=== PATIENT | female | born 1950 | race Caucasian/White ===

== ENCOUNTER → 2016-05-10 | Outpatient (CLI) | payer BC ==
[~2016-05-10] MED LIST: HYDR25TA5 PO; LISI40TA PO
--- NOTE | 2016-05-10 12:40 | MAMMOGRAPHY REPORT ---
BILATERAL DIGITAL SCREENING MAMMOGRAM WITH CAD: 05/10/2016 TECHNIQUE: Current study was also evaluated with a Computer Aided Detection (CAD) system. Bilatera l CC and MLO views were obtained. COMPARISON: Comparison is made to exams dated: 05/07/2015 mammogram, 03/14/2014 mammogram, 3 mammogram, 10/07/2010 mammogram, and 10/21/2009 mammogram - [facility]. BREAST COMPOSITION: There are scattered areas of fibroglandular density in both breasts. FINDINGS: No suspicious masses, calcifications, or areas of architectural distortion are noted in e ither breast. There has been no significant interval change compared to prior exams. Bilateral talib gn-appearing calcifications are not significantly changed. A biopsy marker clip is again noted in t he right central breast. IMPRESSION: ACR BI-RADS CATEGORY 2: BENIGN There is no mammographic evidence of malignancy. A 1 year screening mammogram is recommended. The p atient will receive written notification of the results. Approximately 10% of breast cancers are not detected with mammography. A negative mammographic repor t should not delay biopsy if a clinically suggestive mass is present. Anika Verduzco M.D. ah/:05/10/2016 11:43:20 Microeconomics Professor: Monserrat ENRIQUEZ(R)(M), [facility] letter sent: Normal 1/2 BI-RADS Code: ACR BI-RADS Category 2: Benign
== END | disposition home or self-care (01) ==
LOC: C.MAMM 09:53
PROVIDERS: ATTEND Nurse Practitioner
DX: Z12.31 Encounter for screening mammogram for malignant neoplasm of breast (principal)

== ENCOUNTER → 2016-06-05 | Outpatient (CLI) | payer BC ==
[2016-06-05 13:34] LABS: ESTIMATED AVERAGE GLUCOSE 128 mg/dl; HA1C FLAG Normal (Normal)
[2016-06-05 13:39] LABS: BLOOD UREA NITROGEN 17 mg/dl (7-18); CALCIUM 8.8 mg/dl (8.5-10.1); CARBON DIOXIDE 27 mmol/L (21-32); CHLORIDE 107 mmol/L (98-107); CREATININE 0.82 mg/dl (0.60-1.20); GLUCOSE 107 mg/dl (70-99); POTASSIUM 4.1 mmol/L (3.5-5.1); SODIUM 143 mmol/L (136-145)
[2016-06-05 13:42] LABS: CHOLESTEROL 200 mg/dl (0-200); HDL CHOLESTEROL 50 mg/dl; LDL CHOLESTEROL CALCULATED 130 mg/dl; TRIGLYCERIDES 101 mg/dl (0-150); VERY LOW DENSITY LIPOPROT CALC 20 mg/dl
== END ==
LOC: C.LABPVFM 08:07
PROVIDERS: ATTEND Nurse Practitioner
DX: I10 Essential (primary) hypertension (principal); R73.01 Impaired fasting glucose; E78.5 Hyperlipidemia, unspecified

== ENCOUNTER → 2016-12-31 | Outpatient (CLI) | payer BC ==
[2016-12-31 12:56] LABS: BLOOD UREA NITROGEN 18 mg/dl (7-18); BUN/CREATININE RATIO 24.2 (10-20); CALCIUM 9.1 mg/dl (8.5-10.1); CARBON DIOXIDE 29 mmol/L (21-32); CHLORIDE 102 mmol/L (98-107); CREATININE 0.76 mg/dl (0.60-1.20); GLUCOSE 123 mg/dl (70-99); POTASSIUM 3.8 mmol/L (3.5-5.1); SODIUM 137 mmol/L (136-145)
[2016-12-31 12:59] LABS: CHOLESTEROL 189 mg/dl (0-200); CHOLESTEROL/HDL RATIO 3.4; HDL CHOLESTEROL 56 mg/dl; LDL CHOLESTEROL CALCULATED 113 mg/dl; TRIGLYCERIDES 98 mg/dl (0-150); VERY LOW DENSITY LIPOPROT CALC 20 mg/dl
== END | disposition home or self-care (01) ==
LOC: C.LABPVFM 07:51
PROVIDERS: ATTEND Nurse Practitioner
DX: E78.5 Hyperlipidemia, unspecified (principal); I10 Essential (primary) hypertension; R73.01 Impaired fasting glucose

== ENCOUNTER → 2017-05-11 | Outpatient (CLI) | payer BC ==
--- NOTE | 2017-05-11 15:22 | MAMMOGRAPHY REPORT ---
BILATERAL DIGITAL SCREENING MAMMOGRAM TOMOSYNTHESIS WITH CAD: 05/11/2017 CLINICAL HISTORY: Routine screening. Patient has no complaints. TECHNIQUE: Breast tomosynthesis in addition to standard 2D mammography was performed. Current study was also evaluated with a Computer Aided Detection (CAD) system. COMPARISON: Comparison is made to exams dated: 05/10/2016 mammogram, 05/07/2015 mammogram, 03/14/2014 mammogram, 03/13/2013 mammogram, 10/07/2010 mammogram, and 10/21/2009 mammogram - [facility]. BREAST COMPOSITION: There are scattered areas of fibroglandular density in both breasts. FINDINGS: A linear scar marker overlies the upper outer quadrant of the left breast. There is expect ed underlying architectural distortion denoting a prior surgical excision. There is a stable audrey-sha ped biopsy marker clip in the 6:00 right breast. There are scattered stable benign-appearing rodlike and coarse calcifications bilaterally. No suspicious spiculated or irregular mass, architectural di stortion or cluster of new, suspicious microcalcifications is seen. IMPRESSION: ACR BI-RADS CATEGORY 1: NEGATIVE There is no mammographic evidence of malignancy. A 1 year screening mammogram is recommended. The pa tient will receive written notification of the results. Approximately 10% of breast cancers are not detected with mammography. A negative mammographic report should not delay biopsy if a clinically suggestive mass is present. Kyara Andujar M.D. ay/:05/11/2017 09:37:50 Cloth Washer: Kesha WELSH)(Kenna), [facility] letter sent: Normal 1/2 BI-RADS Code: ACR BI-RADS Category 1: Negative
== END | disposition home or self-care (01) ==
LOC: C.MAMM 09:01
PROVIDERS: ATTEND Nurse Practitioner
DX: Z12.31 Encounter for screening mammogram for malignant neoplasm of breast (principal)

== ENCOUNTER → 2017-07-15 | Outpatient (CLI) | payer BC ==
[2017-07-15 13:40] LABS: HEMOGLOBIN A1C 6.2 % (4.5-5.6)
[2017-07-15 14:26] LABS: BLOOD UREA NITROGEN 19 mg/dl (7-18); CALCIUM 9.1 mg/dl (8.5-10.1); CARBON DIOXIDE 27 mmol/L (21-32); CREATININE 0.81 mg/dl (0.60-1.20); GLUCOSE 109 mg/dl (70-99)
[2017-07-15 14:43] LABS: CHOLESTEROL 179 mg/dl (0-200); LDL CHOLESTEROL CALCULATED 107 mg/dl; POTASSIUM 3.8 mmol/L (3.5-5.1); SODIUM 139 mmol/L (136-145)
== END | disposition home or self-care (01) ==
LOC: C.LABPVFM 09:18
PROVIDERS: ATTEND Nurse Practitioner
DX: I10 Essential (primary) hypertension (principal); R73.01 Impaired fasting glucose

== ENCOUNTER 2018-06-15 17:10 | Inpatient (IN) ==
[2018-06-15] MEDS ORDERED: SODIUM CHLORIDE 0.9% 1000ML 1,000 ML IV SCH (19:15)
[2018-06-15] MEDS: ONDANSETRON INJ 2 MG/ML 2 ML VIAL IV STA ×2 (19:28→19:51)
[2018-06-15] MEDS ORDERED: ACETAMINOPHEN 1,000 MG/100 ML VIAL IV STA (19:35)
[2018-06-15] MEDS ORDERED: SODIUM CHLORIDE 0.9% 1000ML 1,000 ML IV ONE (19:35)
[2018-06-15] MEDS ORDERED: MoRPHine SULFATE 10 MG/ML CARP/VIAL IV STA (19:35)
[2018-06-15 19:49] LABS: Appearance Urine Clear (Clear); Bacteria Urine Automated Negative (Negative); Bilirubin Urine Negative (Negative); Blood Urine Negative (Negative); Color Urine Dark Yellow; Epithelial Cell Urine Auto >30 /lpf (0-5); Glucose Urine UA Negative (Negative); Ketones Urine 2+ (Negative); Leukocyte Esterase Urine Negative (Negative); Nitrite Urine Positive (Negative); Protein Urine Negative (Negative); RBC Urine Automated 0-4 /hpf (0-4); Specific Gravity Urine 1.016 (1.000-1.030); Urobilinogen Urine Negative (Negative)
[2018-06-15 20:14] LABS: Basophils # (auto) 0.01 K/uL (0-0.2); Basophils % (auto) 0.1 %; Eosinophils # (auto) 0.01 K/uL (0-0.5); Eosinophils % (auto) 0.1 %; Hemoglobin 11.2 g/dL (12.0-16.0); Immature Granulocytes # (auto) 0.03 K/uL (0.00-0.02); Immature Granulocytes % (auto) 0.2 %; Lymphocytes % (auto) 15.2 %; Mean Corpuscular Hgb Conc 33.9 g/dL (32-36); Mean Corpuscular Volume 96.2 fL (80-100); Monocytes # (auto) 0.91 K/uL (0.11-0.59); Monocytes % (auto) 7.3 %; Neutrophils # (auto) 9.66 K/uL (1.4-6.5); Neutrophils % (auto) 77.1 %; Platelet Count 202 K/uL (130-400); RDW Coefficient of Variation 12.9 % (11.5-14.5); RDW Standard Deviation 44.8 fL (36.4-46.3); Red Blood Count 3.43 M/uL (4.2-5.4); White Blood Count 12.52 K/uL (4.8-10.8)
[2018-06-15 20:30] LABS: Albumin Level 2.8 gm/dl (3.4-5.0); Calcium 8.2 mg/dl (8.5-10.1); Creatinine Clr Calc Pharmacy 89.9 ml/min; Est GFR (African American) 103.2; Potassium 3.4 mmol/L (3.5-5.1)
[2018-06-15 20:33] LABS: Albumin Globulin Ratio 0.7 (0.9-2); Globulin 3.8 gm/dl (2.5-4.0); Total Protein 6.6 gm/dl (6.4-8.2)
[2018-06-15] MEDS ORDERED: IOVERSOL 100ml IV PRN (21:17)
--- NOTE | 2018-06-15 21:45 | CT Scan Report ---
CT OF THE ABDOMEN AND PELVIS WITH CONTRAST CLINICAL HISTORY: Abdominal Pain, h/o Diverticulitis COMPARISON STUDY: CT of the abdomen and pelvis October 06, 2013. TECHNIQUE: Following IV administration of 96 mL of Optiray-320, axial images of the abdomen and pelvi s were obtained from the lung bases to the proximal femurs. Images were reviewed in the axial, sagitt al, and coronal planes. IV contrast was administered without complication. Automated exposure contro l was utilized for the study. A dose lowering technique was utilized adhering to the principles of A DURAN. CT DOSE: 1475.16 mGy.cm FINDINGS: Lung bases are clear. The heart is mildly enlarged. There is fatty infiltration of the live r. Biliary ductal dilatation was shown on prior exam and likely related to previous cholecystectomy. There is a subcentimeter suspected right renal cyst. The spleen, adrenal glands and pancreas are unre markable. Major vasculature is patent. There is no evidence for a bowel obstruction. There is no free air. There is colonic diverticulosis. Note is made of moderate infiltration centered on the anterior aspect of the proximal sigmoid colon. There is no free air or abscess. This is adjacent to the dome of the bladder. There is infiltration adjacent to the bladder. There is no gas within the bladder. No suspicious osseous lesions are noted. Infiltration extends into the mesentery. IMPRESSION: Acute sigmoid diverticulitis. Moderate inflammation centered on the proximal sigmoid colon which exte nds into the mesentery. No free air or abscess. Infiltration adjacent to the dome of the bladder with mild infiltration adjacent to the bladder. No gas within the bladder however the findings could be c orrelated with urinalysis to exclude the possibility of a colovesicular fistula. Electronically signed by: Tay Ontiveros M.D. 06/15/2018 9:44 PM
--- NOTE | 2018-06-15 22:05 | Emergency Department Note ---
Entered by Pricilla Flores acting as a scribe for History of Present Illness General Chief complaint: GI Assessment Stated complaint: FEVER, DIVERTICULITIS Time Seen by Provider: 06/15/18 18:30 Source: patient Mode of arrival: ambulatory Limitations: no limitations History of Present Illness Provider complaint: abdominal pain Onset (ago): day(s) 4 Location: abdomen and right Pain Consistency: + other (persistent) Maximum Pain Intensity: 10 Current Pain Intensity: 10 Quality: + other (abdominal pain) Associated symptoms: + fever/chills and + other (diarrhea, constipation); no nausea/vomiting Treatments prior to arrival: other (Tylenol) The patient is a 68 year old female with a past medical history of diverticulitis and hypertension who presents to the Emergency Room with complai nts of a persistent abdominal pain that began 4 days ago. The patient reports that the pain began in her right lower quadrant but is now generalized throughout her abdomen. She states that she did have episodes of diarrhea on Tuesday and Tuesday but was constipated yesterday. She notes that she was e valuated by her PCP yesterday and prescribed cipro and told to present to the ER if she had a fever. She reports that earlier this morning she took her temperature and was 101 F and 103 F when she reevaluated later in the day. She states that she has been taking Tylenol for the fever and that her abdominal pain continues to be a 10/10. Home Medications Home Medications Medication Instructions Recorded Confirmed Type hydrochlorothiazide 25 mg PO QAM 06/15/18 06/15/18 History lisinopril 40 mg PO DAILY 06/15/18 06/15/18 History Allergies Allergy/AdvReac Type Severity Reaction Status Date / Time amoxicillin Allergy Intermediate Swelling Unverified 06/15/18 19:46 of Lip/Tongue/Throat clavulanic acid Allergy Intermediate Swelling Unverified 06/15/18 19:46 of Lip/Tongue/Throat Past Med/Surg History Medical History Hypertension (Chronic) Diverticulitis (Acute) Surgical History H/O hysterectomy with oophorectomy History of appendectomy History of tonsillectomy Hx of cholecystectomy Social History Preferred Language: Austrian Communication Ability: Effective Reimbursement Representative Required: No Beliefs That Will Affect Care: None Current Living Situation: Spouse Other Information That Helps Us Care for You: No Feels Safe at Home: Yes Safety Concerns: Feels Safe At This Time Smoking Status: Never smoker Hx Alcohol Use: No Hx Substance Use: No Review of Systems See HPI for pertinent positives & negatives. and A total of 10 systems reviewed and were otherwise negative Physical Exam Vital Signs Vital Signs - 24 hr 06/15/18 17:34 06/15/18 19:10 06/15/18 19:14 Temperature 38 C H Temperature Source Oral Sepsis Recent Fever Within 48 Hours No Sepsis New/Unexplained Change in Mental Status No Sepsis Action Taken by Nursing No Action Required Pulse Rate 91 H 92 H Pulse Rate [Left Finger] 81 Pulse Rhythm Regular Pulse Rhythm [Left Finger] Regular Pulse Strength [Left Finger] Normal Respiratory Rate 18 20 20 Respiratory Effort / Characteristics Non-Labored Spontaneous Non-Labored Spontaneous Respiratory Depth Normal Normal Respiratory Pattern Regular Regular Blood Pressure 161/85 H Blood Pressure [Right Arm] 164/87 H Blood Pressure Mean 110 Blood Pressure Mean [Right Arm] 112 Blood Pressure Position Sitting Blood Pressure Position [Right Arm] Sitting Pulse Oximetry 94 94 94 Oxygen Delivery Method Room Air Room Air Room Air 06/15/18 21:00 06/15/18 22:59 06/16/18 00:30 Temperature 36.7 C Temperature Source Oral Sepsis Recent Fever Within 48 Hours Sepsis New/Unexplained Change in Mental Status Sepsis Action Taken by Nursing Pulse Rate Pulse Rate [Left Finger] 73 74 73 Pulse Rhythm Pulse Rhythm [Left Finger] Regular Pulse Strength [Left Finger] Normal Respiratory Rate 20 18 16 Respiratory Effort / Characteristics Non-Labored Spontaneous Non-Labored Respiratory Depth Normal Normal Respiratory Pattern Regular Regular Blood Pressure Blood Pressure [Right Arm] 149/75 H 137/83 142/86 H Blood Pressure Mean Blood Pressure Mean [Right Arm] 99 101 104 Blood Pressure Position Blood Pressure Position [Right Arm] Sitting Sitting Pulse Oximetry 95 95 95 Oxygen Delivery Method Room Air Room Air Room Air GENERAL: Awake, alert, uncomfortable-appearing, in no distress HENT: Normocephalic, atraumatic. Oropharynx with dry mucous membranes and otherwise unremarkable. EYES: Normal conjunctiva. Sclera non-icteric. NECK: Supple. No nuchal rigidity. FROM. No JVD. RESPIRATORY: Clear to auscultation. CARDIAC: Regular rate, normal rhythm. Extremities warm and well perfused. Pulses equal. ABDOMEN: Soft, non-distended. Mild RLQ tenderness to palpation. No rebound or guarding. No masses. RECTAL: Deferred. MUSCULOSKELETAL: Chest examination reveals no tenderness. The back is symmetrical on inspection without obvious abnormality. There is no CVA tenderness to palpation. No joint edema. LOWER EXTREMITIES: Calves are equal size bilaterally and non-tender. No edema. No discoloration. NEURO: Normal sensorium. No sensory or motor deficits noted. SKIN: No rash or jaundice noted. Course 2022: Past medical records reviewed. The patient was evaluated in room C8, and a complete history and physical examination were performed. 2199: I reviewed the patient's case with Dr. Singh - [facility] Hospitalist. He will evaluate the patient for further management. Administered Medications Ciprofloxacin (Cipro) 400 mg in 200 mls @ 100 mls/hr IV Q12H ALEX Stop: 06/25/18 21:59 Last Infusion: 06/16/18 00:29 Dose: 0 mls/hr Documented by: [id number] Admin: 06/15/18 22:29 Dose: 100 mls/hr Documented by: [id number] Metronidazole (Flagyl) 500 mg in 100 mls @ 100 mls/hr IV Q8H ALEX Stop: 06/25/18 21:59 Last Infusion: 06/15/18 23:31 Dose: 0 mls/hr Documented by: [id number] Admin: 06/15/18 22:29 Dose: 100 mls/hr Documented by: [id number] Sodium Chloride (Nss 1000ml) 1,000 mls @ 100 mls/hr IV .Q10H ALEX Stop: 07/16/18 00:27 Last Admin: 06/16/18 00:52 Dose: 100 mls/hr Documented by: [id number] Discontinued Medications Sodium Chloride (Nss 1000ml) 1,000 mls @ 999 mls/hr IV .Q1H1M ALEX Stop: 06/15/18 20:15 Last Infusion: 06/15/18 21:32 Dose: 0 mls/hr Documented by: [id number] Admin: 06/15/18 19:28 Dose: 999 mls/hr Documented by: [id number] Acetaminophen (Ofirmev) 1,000 mg in 100 mls @ 400 mls/hr IV NOW STA Stop: 06/15/18 19:49 Last Infusion: 06/15/18 20:10 Dose: 0 mls/hr Documented by: [id number] Admin: 06/15/18 19:50 Dose: 400 mls/hr Documented by: [id number] Sodium Chloride (Nss 1000ml) 1,000 mls @ 999 mls/hr IV .Q1H1M ONE Stop: 06/15/18 20:35 Last Admin: 06/15/18 19:50 Dose: Not Given Documented by: [id number] Ioversol (Optiray 320 100ml) 96 ml IV ONCE PRN PRN Reason: Interaction Checking Stop: 06/19/18 21:16 Last Admin: 06/15/18 21:18 Dose: 96 ml Documented by: [id number] Morphine Sulfate (Morphine Sulfate) 8 mg IV NOW STA Stop: 06/15/18 19:36 Last Admin: 06/15/18 19:50 Dose: 8 mg Documented by: [id number] Ondansetron HCl (Zofran) 4 mg IV NOW STA Stop: 06/15/18 19:15 Last Admin: 06/15/18 19:51 Dose: 4 mg Documented by: [id number] Medical Decision Making Differential Diagnosis Differential diagnosis includes: gastritis, peptic ulcer disease, GERD, gallbladder disease, pancreatitis, small bowel obstruction, acute coronary syndrome, pericarditis, ischemic bowel, irritable bowel disease, irritable bowel syndrome, appendicitis, diverticulitis, malignancy, hernia, UTI, torsion, perforation, trauma, and kidney stones. Medical Records Attestation: I reviewed the patient's medical records. Home Medications Current Medication List: was personally reviewed by me Laboratory Data Attestation: I reviewed the patient's lab results. Result diagrams: 06/15/18 20:00 06/15/18 20:00 Lab Results 06/15/18 06/15/18 06/15/18 Range/Units 19: 20:00 20:00 WBC 12.52 H (4.8-10.8) K/uL RBC 3.43 L (4.2-5.4) M/uL Hgb 11.2 L (12.0-16.0) g/dL Hct 33.0 L (37-47) % MCV 96.2 (80-100) fL MCH 32.7 (25-34) pg MCHC 33.9 (32-36) g/dL RDW Std Deviation 44.8 (36.4-46.3) fL RDW Coeff of Radha 12.9 (11.5-14.5) % Plt Count 202 (130-400) K/uL MPV 10.0 (7.4-10.4) fL Immature Gran % (Auto) 0.2 % Neut % (Auto) 77.1 % Lymph % (Auto) 15.2 % [place] % (Auto) 7.3 % Eos % (Auto) 0.1 % Baso % (Auto) 0.1 % Immature Gran # (Auto) 0.03 H (0.00-0.02) K/uL Neut # (Auto) 9.66 H (1.4-6.5) K/uL Lymph # (Auto) 1.90 (1.2-3.4) K/uL [place] # (Auto) 0.91 H (0.11-0.59) K/uL Eos # (Auto) 0.01 (0-0.5) K/uL Baso # (Auto) 0.01 (0-0.2) K/uL Sodium 138 (136-145) mmol/L Potassium 3.4 L (3.5-5.1) mmol/L Chloride 109 H (98-107) mmol/L Carbon Dioxide 24 (21-32) mmol/L Anion Gap 5.0 (3-11) BUN 14 (7-18) mg/dl Creatinine 0.70 (0.6-1.2) mg/dl Est Cr Clr Drug Dosing 89.9 ml/min Est GFR ( Amer) 103.2 Est GFR (Non-Af Amer) 89.0 BUN/Creatinine Ratio 20.0 (10-20) Glucose 132 H (70-99) mg/dl Lactate (0.4-2.0) mmol/L Calcium 8.2 L (8.5-10.1) mg/dl Total Bilirubin 1.0 (0.2-1) mg/dl AST 19 (15-37) U/L ALT 33 (12-78) U/L Alkaline Phosphatase 67 (45-117) U/L Total Protein 6.6 (6.4-8.2) gm/dl Albumin 2.8 L (3.4-5.0) gm/dl Globulin 3.8 (2.5-4.0) gm/dl Albumin/Globulin Ratio 0.7 L (0.9-2) Lipase 53 L (73-393) U/L Urine Color Dark Yellow Urine Appearance Clear (Clear) Urine pH 7.0 (4.5-7.5) Ur Specific [place] 1.016 (1.000-1.030) Urine Protein Negative (Negative) Urine Glucose (UA) Negative (Negative) Urine Ketones 2+ H (Negative) Urine Blood Negative (Negative) Urine Nitrite Positive H (Negative) Urine Bilirubin Negative (Negative) Urine Urobilinogen Negative (Negative) Ur Leukocyte Esterase Negative (Negative) Urine WBC (Auto) 1-5 (0-5) /hpf Urine RBC (Auto) 0-4 (0-4) /hpf U Hyaline Cast (Auto) 1-5 (0-5) /lpf U Epithel Cells (Auto) >30 H (0-5) /lpf Urine Bacteria (Auto) Negative (Negative) 06/15/18 Range/Units 21:31 WBC (4.8-10.8) K/uL RBC (4.2-5.4) M/uL Hgb (12.0-16.0) g/dL Hct (37-47) % MCV (80-100) fL MCH (25-34) pg MCHC (32-36) g/dL RDW Std Deviation (36.4-46.3) fL RDW Coeff of Radha (11.5-14.5) % Plt Count (130-400) K/uL MPV (7.4-10.4) fL Immature Gran % (Auto) % Neut % (Auto) % Lymph % (Auto) % [place] % (Auto) % Eos % (Auto) % Baso % (Auto) % Immature Gran # (Auto) (0.00-0.02) K/uL Neut # (Auto) (1.4-6.5) K/uL Lymph # (Auto) (1.2-3.4) K/uL [place] # (Auto) (0.11-0.59) K/uL Eos # (Auto) (0-0.5) K/uL Baso # (Auto) (0-0.2) K/uL Sodium (136-145) mmol/L Potassium (3.5-5.1) mmol/L Chloride (98-107) mmol/L Carbon Dioxide (21-32) mmol/L Anion Gap (3-11) BUN (7-18) mg/dl Creatinine (0.6-1.2) mg/dl Est Cr Clr Drug Dosing ml/min Est GFR ( Amer) Est GFR (Non-Af Amer) BUN/Creatinine Ratio (10-20) Glucose (70-99) mg/dl Lactate 0.6 (0.4-2.0) mmol/L Calcium (8.5-10.1) mg/dl Total Bilirubin (0.2-1) mg/dl AST (15-37) U/L ALT (12-78) U/L Alkaline Phosphatase (45-117) U/L Total Protein (6.4-8.2) gm/dl Albumin (3.4-5.0) gm/dl Globulin (2.5-4.0) gm/dl Albumin/Globulin Ratio (0.9-2) Lipase (73-393) U/L Urine Color Urine Appearance (Clear) Urine pH (4.5-7.5) Ur Specific [place] (1.000-1.030) Urine Protein (Negative) Urine Glucose (UA) (Negative) Urine Ketones (Negative) Urine Blood (Negative) Urine Nitrite (Negative) Urine Bilirubin (Negative) Urine Urobilinogen (Negative) Ur Leukocyte Esterase (Negative) Urine WBC (Auto) (0-5) /hpf Urine RBC (Auto) (0-4) /hpf U Hyaline Cast (Auto) (0-5) /lpf U Epithel Cells (Auto) (0-5) /lpf Urine Bacteria (Auto) (Negative) Imaging Data Radiologist's Impression: Radiology results as stated below per my review and the radiologist's interpretation: CT OF THE ABDOMEN AND PELVIS WITH CONTRAST CLINICAL HISTORY: Abdominal Pain, h/o Diverticulitis COMPARISON STUDY: CT of the abdomen and pelvis October 06, 2013. TECHNIQUE: Following IV administration of 96 mL of Optiray-320, axial images of the abdomen and pelvis were obtained from the lung bases to the proximal femurs. Images were reviewed in the axial, sagittal, and coronal planes. IV contrast was administered without complication. Automated exposure control was utilized for the study. A dose lowering technique was utilized adhering to the principles of ALARA. CT DOSE: 1475.16 mGy.cm FINDINGS: Lung bases are clear. The heart is mildly enlarged. There is fatty infiltration of the liver. Biliary ductal dilatation was shown on prior exam and likely related to previous cholecystectomy. There is a subcentimeter suspected right renal cyst. The spleen, adrenal glands and pancreas are unremarkable. Major vasculature is patent. There is no evidence for a bowel obstruction. There is no free air. There is colonic diverticulosis. Note is made of moderate infiltration centered on the anterior aspect of the proximal sigmoid colon. There is no free air or abscess. This is adjacent to the dome of the bladder. There is infiltration adjacent to the bladder. There is no gas within the bladder. No suspicious osseous lesions are noted. Infiltration extends into the mesentery. IMPRESSION: Acute sigmoid diverticulitis. Moderate inflammation centered on the proximal sigmoid colon which extends into the mesentery. No free air or abscess. Infiltration adjacent to the dome of the bladder with mild infiltration adjacent to the bladder. No gas within the bladder however the findings could be correlated with urinalysis to exclude the possibility of a colovesicular fistula. Electronically signed by: Tay Ontiveros M.D. 06/15/2018 9:44 PM Blood Pressure Blood Pressure Findings: Elevated blood pressure Blood Pressure Disposition: further management by hospitalist EVA Vitale The patient is a pleasant 68-year-old woman with a past medical history of diverticulitis who presents emergency department with worsening right lower quadrant abdominal pain in the setting of being treated empirically for diverticulitis by her PCP HPI. The patient is uncomfortable but no acute distress, febrile to 38, heart rate in the 90s and vital signs otherwise stable. On exam the patient has mild right lower quadrant tenderness without peritoneal signs. WBC 12.5. H/H 11.2/33 without prior values for comparison. Chemistry without acidosis. Lactate within normal limits. UA with 2+ ketones and positive nitrites however no bacteria or WBCs and epithelial cells> 30. CT abdomen pelvis demonstrates acute sigmoid diverticulitis without free air or ab scess. There is comment of infiltration adjacent to the dome of the bladder with mild infiltration adjacent to the bladder unlikely to be colovesicular fistula given fairly unremarkable urine analysis. Patient feeling improved after IV fluid hydration, APAP and morphine but still uncomfortable. Given the patient's failed outpatient management for her diverticulitis in the setting of her fevers and pain reasonable to admit the patient for IV antibiotics. She has a history of an allergy to amoxicillin therefore will treat with IV Cipro and Flagyl for now. Resident, Dr. Florian, discussed the case with Dr. Singh, [facility] [place], who will evaluated the patient for admission. This patient was managed with the assistance of resident, Dr. Dr. Florian. I discussed the case with the resident, examined the patient, and confirm the findings and plan as documented in this note. Impression & Plan Diverticulitis Discharge Plan Visit Data *Final* Discharge Date/Time: 06/15/18 23:52 Chief Complaint: GI Assessment Stated Complaint: FEVER, DIVERTICULITIS ED Provider: Paul Pineda ED Midlevel Provider: Avi Florian Discharge Problem: Diverticulitis Patient Disposition: Admitted As Inpatient Discharge Instructions Interventions: ED Discharge Assessment Last Done: 06/15/18 23:52 The scribe's documentation has been prepared under my direction and personally reviewed by me in its entirety. I confirm that the note above accurately reflects all work, treatment, procedures, and medical decision making performed by me.
[2018-06-15] MEDS: CIPROFLOXACIN 400 MG/200 ML BAG IV SCH (22:29)
[2018-06-15] MEDS: metroNIDAZOLE 500 MG/100 ML BAG IV SCH (22:29)
--- NOTE | 2018-06-15 22:29 | History & Physical Report ---
Date of Service June 15, 2018 Assessment & Plan (1) Diverticulitis: 68F here with diverticulitis, who failed outpatient monotherapy with ciprofloxacin, and dysuria. Assessment -Diverticulitis with possible colovesicular fistula on CT -- bladder neg for free air -microscopy not suggestive of fecaluria, is neg for proteins. However, pt did complain of dysuria one day ago, and had taken Azo yesterday. Plan -pain control: 8mg IV morphine given in ED. Will titrate PRN, start with 4mg IV q4h on the floors -zofran for nausea prn -will order urine culture -- if suspicious for pathogens, could consider further imaging as below. -oral or rectal IV contrast would be needed to assess for fistula on further CT imaging. (Initial was done with IV). FEN/GI: clears, advance as tolerated. Gentle fluid maintenance at 100 ml/hr. DVT ppx: Lovenox q12h. CODE STATUS: FULL as d/w pt and at bedside -- pt would only want temporary intubation if meaningful recovery were possible. DISPO: Med/surg, pain control, to home on discharge. (2) Hypertension: Continue home HCTZ 25mg daily, lisinopril 40mg daily. (3) Dysuria: Query vesicolic fistula as above. Pt has no h/o crohn's or IBD. Has only had 2 other episodes of diverticulitis. -urine culture pending as above -empiric coverage with cipro/flagyl regimen should be adequate, pending cultures. -pt denies h/o frequent UTIs. History of Present Illness Chief Complaint: Intractable abdominal pain, failure of outpatient therapy of diverticulitis Primary Care Provider: FARIDEH Rawls This is a 68-year-old female with past medical history of hypertension and 2 previous episodes of diverticulitis who presents to the emergency room after failure of outpatient therapy for diverticulitis. She states her symptoms began 4 days ago with right lower quadrant pain that traveled to the middle and then to the left side of her abdomen. She states she had 2 days worth of loose stools, then had formed stools the following days. She endorses nausea. She denies vomiting. She endorses decreased appetite. She also endorses dysuria that began yesterday, for which she took 1 dose of Azo. She was seen by her primary care provider during the course of this illness, and was prescribed Cip ro. She was told that should she develop fevers or worsening pain to present to the ED. In the ED, she was initially hypertensive then normotensive. Not tachycardic. Oxygenating well on room air, febrile 38 C.Her labs were remarkable for leukocytosis white blood cell count 12,000, mild anemia H&H 11.2/33, electrolytes unremarkable, glucose slightly elevated 132, lactate normal. Liver function normal. Lipase normal. Urinalysis showed dark yellow urine, 2+ ketones, positive nitrites. Abdomen pelvis CT with IV contrast showed acute sigmoid diverticulitis. No free air or abscess. Possible infiltration adjacent to the dome of the bladder, no gas within the bladder, need to exclude possible colovesicular fistula. - PMH 1. reviewed, below PSH 1. reviewed, below. Of note, pt has sugically absent appendix, GB, uterus. Social history: Denies T / E / D . Hospitalist service consulted for further evaluation and management. Allergies Allergy/AdvReac Type Severity Reaction Status Date / Time amoxicillin Allergy Intermediate Swelling Unverified 06/15/18 19:46 of Lip/Tongue/Throat clavulanic acid Allergy Intermediate Swelling Unverified 06/15/18 19:46 of Lip/Tongue/Throat Home Medications Home Medications Medication Instructions Recorded Confirmed Type hydrochlorothiazide 25 mg PO QAM 06/15/18 06/15/18 History lisinopril 40 mg PO DAILY 06/15/18 06/15/18 History Past Med/Surg History Medical History Hypertension (Chronic) Diverticulitis (Acute) Surgical History H/O hysterectomy with oophorectomy History of appendectomy History of tonsillectomy Hx of cholecystectomy Social History Preferred Language: Tajik Communication Ability: Effective Supervisor Type Bar And Segment Required: No Beliefs That Will Affect Care: None Current Living Situation: Spouse Other Information That Helps Us Care for You: No Feels Safe at Home: Yes Safety Concerns: Feels Safe At This Time Smoking Status: Never smoker Hx Alcohol Use: No Hx Substance Use: No Review of Systems All systems reviewed & are unremarkable except as noted in HPI & below Physical Exam Vital Signs (Past 24 Hours): Last Vital Signs Temp 38 C H 06/15/18 17:34 Pulse 73 06/15/18 21:00 Resp 20 06/15/18 21:00 BP 149/75 H 06/15/18 21:00 Pulse Ox 95 06/15/18 21:00 Physical Exam: Examined with at bedside. Vitals noted as above and within normal limits with the exception of fever. hypertension. GENERAL: Awake, alert to person, place, and time, nontoxic-appearing, in no distress HENT: Normocephalic, atraumatic. Mucus membranes appear moist. EYES: Normal conjunctiva. Sclera non-icteric. EOMI. NECK: Supple. Full range of motion. No JVD RESPIRATORY: Clear to auscultation. Normal work of breathing. CARDIAC: Regular rate, normal rhythm. Extremities warm and well perfused, 2+ radial pulses bilaterally; 2+ posterior tibialis pulses bilaterally. ABDOMEN: Soft, non-distended. Moderate tenderness to palpation in epigastrium and RLQ and LLQ. No rebound or guarding. No masses. Bowel sounds are normal. LOWER EXTREMITIES: Inspection of calves reveal equal size bilaterally. They are non-tender. No edema. No discoloration. NEURO: No focal gross focal motor deficits noted. Sensation in tact. CN II-XII grossly in tact. SKIN: Rash not present. No jaundice noted. Significant lesions not present. PSYCH: Appropriate mood and affect. Cooperative. Exam as done by Suzy Moreau MD, [employer]. Results & Data Laboratory Results 06/15/18 06/15/18 06/15/18 Range/Units 21:31 20:00 20:00 WBC 12.52 H (4.8-10.8) K/uL RBC 3.43 L (4.2-5.4) M/uL Hgb 11.2 L (12.0-16.0) g/dL Hct 33.0 L (37-47) % MCV 96.2 (80-100) fL MCH 32.7 (25-34) pg MCHC 33.9 (32-36) g/dL RDW Std Deviation 44.8 (36.4-46.3) fL RDW Coeff of Radha 12.9 (11.5-14.5) % Plt Count 202 (130-400) K/uL MPV 10.0 (7.4-10.4) fL Immature Gran % (Auto) 0.2 % Neut % (Auto) 77.1 % Lymph % (Auto) 15.2 % [place] % (Auto) 7.3 % Eos % (Auto) 0.1 % Baso % (Auto) 0.1 % Immature Gran # (Auto) 0.03 H (0.00-0.02) K/uL Neut # (Auto) 9.66 H (1.4-6.5) K/uL Lymph # (Auto) 1.90 (1.2-3.4) K/uL [place] # (Auto) 0.91 H (0.11-0.59) K/uL Eos # (Auto) 0.01 (0-0.5) K/uL Baso # (Auto) 0.01 (0-0.2) K/uL Sodium 138 (136-145) mmol/L Potassium 3.4 L (3.5-5.1) mmol/L Chloride 109 H (98-107) mmol/L Carbon Dioxide 24 (21-32) mmol/L Anion Gap 5.0 (3-11) BUN 14 (7-18) mg/dl Creatinine 0.70 (0.6-1.2) mg/dl Est Cr Clr Drug Dosing 89.9 ml/min Est GFR ( Amer) 103.2 Est GFR (Non-Af Amer) 89.0 BUN/Creatinine Ratio 20.0 (10-20) Glucose 132 H (70-99) mg/dl Lactate 0.6 (0.4-2.0) mmol/L Calcium 8.2 L (8.5-10.1) mg/dl Total Bilirubin 1.0 (0.2-1) mg/dl AST 19 (15-37) U/L ALT 33 (12-78) U/L Alkaline Phosphatase 67 (45-117) U/L Total Protein 6.6 (6.4-8.2) gm/dl Albumin 2.8 L (3.4-5.0) gm/dl Globulin 3.8 (2.5-4.0) gm/dl Albumin/Globulin Ratio 0.7 L (0.9-2) Lipase 53 L (73-393) U/L Urine Color Urine Appearance (Clear) Urine pH (4.5-7.5) Ur Specific [place] (1.000-1.030) Urine Protein (Negative) Urine Glucose (UA) (Negative) Urine Ketones (Negative) Urine Blood (Negative) Urine Nitrite (Negative) Urine Bilirubin (Negative) Urine Urobilinogen (Negative) Ur Leukocyte Esterase (Negative) Urine WBC (Auto) (0-5) /hpf Urine RBC (Auto) (0-4) /hpf U Hyaline Cast (Auto) (0-5) /lpf U Epithel Cells (Auto) (0-5) /lpf Urine Bacteria (Auto) (Negative) 06/15/18 Range/Units 19:21 WBC (4.8-10.8) K/uL RBC (4.2-5.4) M/uL Hgb (12.0-16.0) g/dL Hct (37-47) % MCV (80-100) fL MCH (25-34) pg MCHC (32-36) g/dL RDW Std Deviation (36.4-46.3) fL RDW Coeff of Radha (11.5-14.5) % Plt Count (130-400) K/uL MPV (7.4-10.4) fL Immature Gran % (Auto) % Neut % (Auto) % Lymph % (Auto) % [place] % (Auto) % Eos % (Auto) % Baso % (Auto) % Immature Gran # (Auto) (0.00-0.02) K/uL Neut # (Auto) (1.4-6.5) K/uL Lymph # (Auto) (1.2-3.4) K/uL [place] # (Auto) (0.11-0.59) K/uL Eos # (Auto) (0-0.5) K/uL Baso # (Auto) (0-0.2) K/uL Sodium (136-145) mmol/L Potassium (3.5-5.1) mmol/L Chloride (98-107) mmol/L Carbon Dioxide (21-32) mmol/L Anion Gap (3-11) BUN (7-18) mg/dl Creatinine (0.6-1.2) mg/dl Est Cr Clr Drug Dosing ml/min Est GFR ( Amer) Est GFR (Non-Af Amer) BUN/Creatinine Ratio (10-20) Glucose (70-99) mg/dl Lactate (0.4-2.0) mmol/L Calcium (8.5-10.1) mg/dl Total Bilirubin (0.2-1) mg/dl AST (15-37) U/L ALT (12-78) U/L Alkaline Phosphatase (45-117) U/L Total Protein (6.4-8.2) gm/dl Albumin (3.4-5.0) gm/dl Globulin (2.5-4.0) gm/dl Albumin/Globulin Ratio (0.9-2) Lipase (73-393) U/L Urine Color Dark Yellow Urine Appearance Clear (Clear) Urine pH 7.0 (4.5-7.5) Ur Specific [place] 1.016 (1.000-1.030) Urine Protein Negative (Negative) Urine Glucose (UA) Negative (Negative) Urine Ketones 2+ H (Negative) Urine Blood Negative (Negative) Urine Nitrite Positive H (Negative) Urine Bilirubin Negative (Negative) Urine Urobilinogen Negative (Negative) Ur Leukocyte Esterase Negative (Negative) Urine WBC (Auto) 1-5 (0-5) /hpf Urine RBC (Auto) 0-4 (0-4) /hpf U Hyaline Cast (Auto) 1-5 (0-5) /lpf U Epithel Cells (Auto) >30 H (0-5) /lpf Urine Bacteria (Auto) Negative (Negative) Code Status & VTE Plan Code Status FULL - temporary intubation. Supervising Physician Co-Signing Physician Notes Attending addendum: I have physically seen this patient, have supervised the medical residents activities, and agree with the H&P unless as otherwise noted. Assessment and Plan: Diverticulitis/failure of outpatient therapy-- Admits to medical floor bed. Cipro 400 mg IV every 12 hours Flagyl 500 mg IV every 8 hours. NSS at 100 mils per hour. Pantoprazole 40 mg IV daily. Zofran 4 mg IV every 6 hours as needed. Radiologic concerns regarding potential inflammation of the dome of the bladder and potential risk for colovesical fistula, however, Patient has no symptoms referable to fistula, and will further assessed by follow urine culture sensitivity. Remainder of orders notations as noted. Resident Activity Tracking Resident Involvement: Resident Care Provided Care Provided: Adult Hospital Medicine
[2018-06-16] MEDS ORDERED: MAGNESIUM HYDROXIDE SUSP 30 ML UDC PO PRN (00:28)
[2018-06-16] MEDS ORDERED: MoRPHine SULFATE 4 MG/ML 1 ML CARP\\VIAL IV PRN (00:28)
[2018-06-16] MEDS ORDERED: POLYETHYLENE (MIRALAX) 17 GM PACK PO PRN (00:28)
[2018-06-16] MEDS ORDERED: ACETAMINOPHEN 325 MG TAB PO PRN (00:28)
[2018-06-16] MEDS ORDERED: ALUMINUM/MAGNESIUM SUSP 30 ML UDC PO PRN (00:28)
[2018-06-16] MEDS ORDERED: ONDANSETRON INJ 2 MG/ML 2 ML VIAL IV PRN (00:28)
[2018-06-16] MEDS: SODIUM CHLORIDE 0.9% 1000ML 1,000 ML IV SCH ×3 (00:52→21:51)
[2018-06-16] MEDS: metroNIDAZOLE 500 MG/100 ML BAG IV SCH ×3 (05:32→21:51)
[2018-06-16 06:59] LABS: Eosinophils # (auto) 0.04 K/uL (0-0.5); Eosinophils % (auto) 0.5 %; Hematocrit (blood only) 31.4 % (37-47); Hemoglobin 10.8 g/dL (12.0-16.0); Immature Granulocytes # (auto) 0.02 K/uL (0.00-0.02); Immature Granulocytes % (auto) 0.3 %; Lymphocytes # (auto) 1.51 K/uL (1.2-3.4); Lymphocytes % (auto) 20.1 %; Mean Corpuscular Hgb Conc 34.4 g/dL (32-36); Mean Corpuscular Volume 96.6 fL (80-100); Mean Platelet Volume 9.8 fL (7.4-10.4); Monocytes # (auto) 0.79 K/uL (0.11-0.59); Monocytes % (auto) 10.5 %; Neutrophils # (auto) 5.16 K/uL (1.4-6.5); Neutrophils % (auto) 68.6 %; Platelet Count 190 K/uL (130-400); RDW Coefficient of Variation 13.1 % (11.5-14.5); RDW Standard Deviation 46.1 fL (36.4-46.3); Red Blood Count 3.25 M/uL (4.2-5.4); White Blood Count 7.52 K/uL (4.8-10.8)
[2018-06-16 07:31] LABS: BUN Creatinine Ratio 18.9 (10-20); Calcium 7.9 mg/dl (8.5-10.1); Creatinine Clr Calc Pharmacy 95.4 ml/min; Est GFR (African American) 105.2; Est GFR (Non-African American) 90.8; Potassium 3.5 mmol/L (3.5-5.1)
[2018-06-16] MEDS: hydroCHLOROthiazide 25 MG TAB PO SCH (08:39)
[2018-06-16] MEDS: LISINOPRIL 40 MG TAB PO SCH (08:39)
--- NOTE | 2018-06-16 09:35 | Hospitalist Progress Note ---
Date of Service June 16, 2018 Assessment & Plan (1) Diverticulitis: 68F here with diverticulitis, who failed outpatient treatment has a small symptomatic dysuria prior to admission Assessment -Diverticulitis with possible colovesicular fistula on CT -- bladder neg for free air urinalysis unremarkable for significant changes pt did complain of dysuria one day ago, and had taken Azo yesterday. Plan -pain control: 8mg IV morphine given in ED. Will titrate PRN, start with 4mg IV q4h on the floors -zofran for nausea prn -will order urine culture -- if suspicious for pathogens, could consider further imaging as below. Consult urology DVT ppx: Lovenox q12h. CODE STATUS: FULL as d/w pt and at bedside -- pt would only want temporary intubation if meaningful recovery were possible. DISPO: Med/surg, pain control, to home on discharge. (2) Hypertension: Continue home HCTZ 25mg daily, lisinopril 40mg daily. (3) Dysuria: -urine culture pending as above -pt denies h/o frequent UTIs. Subjective She says she feels markedly better since her admission. Patient states that she actually was taking metronidazole at home and she just could not remember last night. However she only took 2 doses of the Cipro 2 doses of the metronidazole prior to coming in. He is having some liquidy bowel movements and still having some left lower quadrant discomfort Review of Systems ROS: well nourished well developed. No double vision blurry vision No problems with speech or swallowing No palpitations, chest pain or pressure No Wheezing or breathing issues Diffuse abdominal pain more present in the left lower quadrant, she has mild nausea with vomiting today and has some diarrhea No burning urine urine frequency or changes in color there is some concern for a colonic vesicular fistula so is good that she is not having any urine symptoms No focal joint pain or muscle pain No skin rashes or oral lesions No unusual bruising or bleeding No focused back pain or numbness or loss of strength No changes in memory or confusion Physical Exam Vital Signs (Past 24 Hours): Last Vital Signs Temp 36.8 C 06/16/18 08:01 Pulse 70 06/16/18 08:01 Resp 18 06/16/18 08:01 BP 146/81 H 06/16/18 08:01 Pulse Ox 95 06/16/18 08:01 The patient appeared well nourished and normally developed. Vital signs as documented. Head exam is unremarkable. normocephalic, atraumatic Neck is without jugular venous distension, thyromegaly, or lymphademopathy Lungs are clear to auscultation and percussion. Cardiac exam reveals Rhythm is regular. First and second heart sounds normal. Abdominal exam reveals left lower quadrant pain and guarding no rebound slightly hyperactive bowel sounds, no masses, no organomegaly Extremities are nonedematous and both pedal pulses are present Neurologic exam is A&Ox3, no focal deficits, strength is equal bilateral Psychologically seems neither anxious or depressed Skin is warm Dry without bruises or lesions
[2018-06-16] MEDS: CIPROFLOXACIN 400 MG/200 ML BAG IV SCH ×2 (09:42→21:51)
[2018-06-16] MEDS: ENOXAPARIN INJ 30 MG/0.3 ML SYR SQ SCH ×2 (12:05→20:42)
[2018-06-16 14:18] LABS: Appearance Urine Clear (Clear); Bilirubin Urine Negative (Negative); Blood Urine Negative (Negative); Color Urine Yellow; Glucose Urine UA Negative (Negative); Ketones Urine Negative (Negative); Leukocyte Esterase Urine Negative (Negative); Nitrite Urine Negative (Negative); Protein Urine Negative (Negative); Specific Gravity Urine 1.016 (1.000-1.030); Urobilinogen Urine Negative (Negative); pH Urine 6.5 (4.5-7.5)
--- NOTE | 2018-06-16 18:46 | Urology Consultation ---
Date of Consultation June 16, 2018 Assessment & Plan (1) Dysuria: Reviewed films with patient. Possible CV fistula. If this is true, it is likely in the initial phases since she had min issues prior to this episode. Urologically she is feeling much better now. Urine culture pending. Await cultures and treat accordingly. Once she has completed treatment for her diverticulitis, she can be fully worked up as an outpatient for CV fistula with a CT scan with Oral Contrast or a CT Urogram combined with cystoscopy. Will make appropriate arrangements as an outpatient. (2) Diverticulitis: Management per hosptialists or general surgery. History of Present Illness Attending Physician: 68 y/o female admitted with diverticulitis. She has a hx of diverticular episodes. Recently failed outpt therapy with Cipro. For the last 4 days she has had RLQ pain and loose stools. She also reported dysuria. Took Azo w/o much success. She presented to the ED with continued symptoms. She reported some pressure near the bladder as well. Upon arrival, UA was susp for UTI with +nits. CT scan showed acute sigmoid diverticulitis and possible [place] Fistula. No air in bladder. Pt denies a hx of RUTIs. She normally voids with a good stream. Min urge and freq. No dysuria. No hematuria. No fecaluria. No pneumaturia. No hx of bladder surgery. She has had pyelo in the past. She does not recall seeing a Urologist in the past for any specific complaint. Currently her dysuria has improved. She has minimal urinary complaints. Allergies Allergy/AdvReac Type Severity Reaction Status Date / Time amoxicillin Allergy Intermediate Swelling Unverified 06/15/18 19:46 of Lip/Tongue/Throat clavulanic acid Allergy Intermediate Swelling Unverified 06/15/18 19:46 of Lip/Tongue/Throat Home Medications Home Medications Medication Instructions Recorded Confirmed Type hydrochlorothiazide 25 mg PO QAM 06/15/18 06/15/18 History lisinopril 40 mg PO DAILY 06/15/18 06/15/18 History Patient History Medical History Hypertension (Chronic) Diverticulitis (Acute) Surgical History H/O hysterectomy with oophorectomy History of appendectomy History of tonsillectomy Hx of cholecystectomy Social History Preferred Language: Macedonian Communication Ability: Effective House Worker General Required: No Beliefs That Will Affect Care: None Current Living Situation: Spouse Other Information That Helps Us Care for You: No Feels Safe at Home: Yes Safety Concerns: Feels Safe At This Time Smoking Status: Never smoker Hx Alcohol Use: No Hx Substance Use: No Review of Systems Constitutional: no fever and no chills Eyes: no blind spots Ear, Nose, Mouth, Throat: no ear pain and no tinnitus Respiratory: no cough Cardiovascular: no chest pain Gastrointestinal: as per Subjective / HPI and + abdominal pain Genitourinary (Female): as per Subjective / HPI and + dysuria Musculoskeletal: no back pain Neurologic: no gait abnormality Psychiatric: no behavioral changes Endocrine: + fatigue Hematologic / Lymphatic: no coagulopathy Physical Exam Vital Signs (Past 24 Hours): Last Vital Signs Temp 36.9 C 06/16/18 15:10 Pulse 69 06/16/18 15:10 Resp 18 06/16/18 15:10 BP 145/69 H 06/16/18 15:10 Pulse Ox 96 06/16/18 15:10 Constitutional: WD/WN, vitals as above well developed Eyes: PERRL, conjunctivae normal, anicteric sclerae ENMT: external ear and nose normal, oropharynx normal Respiratory: normal respiratory effort, lungs clear to auscultation Cardiovascular: RRR, no murmur, no edema Gastrointestinal (Abdomen): Inspection/Auscultation: abdomen normal to inspection Percussion/Palpation: abdomen soft Skin: no rashes, warm and dry Psychiatric: A+Ox3, euthymic affect Genitourinary: normal external appearance; no bladder abnormality, no external lesions and no urethral lesion
[2018-06-16] MEDS ORDERED: CALCIUM CARBONATE 500 MG CHEWABLE TAB PO PRN (19:54)
[2018-06-17] MEDS: metroNIDAZOLE 500 MG/100 ML BAG IV SCH (06:15)
[2018-06-17] MEDS: SODIUM CHLORIDE 0.9% 1000ML 1,000 ML IV SCH ×2 (08:28→14:40)
[2018-06-17] MEDS: ENOXAPARIN INJ 30 MG/0.3 ML SYR SQ SCH ×2 (08:28→21:10)
[2018-06-17] MEDS: LISINOPRIL 40 MG TAB PO SCH (08:29)
[2018-06-17] MEDS: hydroCHLOROthiazide 25 MG TAB PO SCH (08:29)
[2018-06-17 08:52] LABS: BUN Creatinine Ratio 10.6 (10-20); Calcium 8.1 mg/dl (8.5-10.1); Creatinine Clr Calc Pharmacy 87.4 ml/min; Est GFR (African American) 99.7; Est GFR (Non-African American) 86.1; Potassium 3.2 mmol/L (3.5-5.1)
[2018-06-17] MEDS: CIPROFLOXACIN 400 MG/200 ML BAG IV SCH (10:27)
[2018-06-17] MEDS ORDERED: POTASSIUM CHLORIDE 20 MEQ TABCR PO STA (11:14)
--- NOTE | 2018-06-17 13:25 | Hospitalist Progress Note ---
Date of Service June 17, 2018 Assessment & Plan (1) Diverticulitis: 68F here with diverticulitis, who failed outpatient treatment has a small symptomatic dysuria prior to admission -Diverticulitis with possible colovesicular fistula on CT -- bladder neg for free air urinalysis unremarkable for significant changes cultures are pending Abdomen is more tender on day 2 than day 1, low threshold for re-CT and abdomen pelvis Plan -pain control: IV morphine -zofran for nausea prn DVT ppx: Lovenox q12h. CODE STATUS: FULL as d/w pt and at bedside -- pt would only want temporary intubation if meaningful recovery were possible. DISPO: Med/surg, pain control, to home on discharge. (2) Hypertension: Continue home HCTZ 25mg daily, lisinopril 40mg daily. (3) Dysuria: -urine culture pending as above -pt denies h/o frequent UTIs. Subjective Patient says she feels somewhat improved however on examination her abdomen is much more tender especially suprapubically and in the left lower quadrant. She has had no fevers and is tolerant of diet however however she is having diarrhea. Urology did see the patient did not plan any additional inpatient testing Review of Systems ROS: well nourished well developed. She feels fatigued and tired No double vision blurry vision No problems with speech or swallowing No palpitations, chest pain or pressure No Wheezing or breathing issues Suprapubic and left lower quadrant abdominal pain, nausea vomiting having some mild diarrhea No burning urine urine frequency or changes in color No focal joint pain or muscle pain No skin rashes or oral lesions No unusual bruising or bleeding No focused back pain or numbness or loss of strength No changes in memory or confusion Physical Exam Vital Signs (Past 24 Hours): Last Vital Signs Temp 36.8 C 06/17/18 07:44 Pulse 71 06/17/18 07:44 Resp 17 06/17/18 07:44 BP 116/80 06/17/18 07:44 Pulse Ox 94 06/17/18 07:44 The patient appeared well nourished and normally developed. Vital signs as documented. Head exam is unremarkable. normocephalic, atraumatic Neck is without jugular venous distension, thyromegaly, or lymphademopathy Lungs are clear to auscultation and percussion. Cardiac exam reveals Rhythm is regular. First and second heart sounds normal. Abdominal exam tenderness in suprapubic region left lower quadrant, no acute abdomen but she does have some guarding normal bowel sounds, no masses, no organomegaly Extremities are nonedematous and both pedal pulses are present Neurologic exam is A&Ox3, no focal deficits, strength is equal bilateral Psychologically seems neither anxious or depressed Skin is warm Dry without bruises or lesions
[2018-06-17] MEDS: metroNIDAZOLE 500 MG TAB PO SCH ×2 (13:45→21:09)
[2018-06-17] MEDS: CIPROFLOXACIN 500 MG TAB PO SCH (21:09)
[2018-06-18] MEDS: metroNIDAZOLE 500 MG TAB PO SCH ×2 (05:48→13:34)
[2018-06-18 07:39] LABS: BUN Creatinine Ratio 9.2 (10-20); Calcium 8.5 mg/dl (8.5-10.1); Creatinine Clr Calc Pharmacy 78.7 ml/min; Est GFR (African American) 87.8; Est GFR (Non-African American) 75.8; Potassium 3.4 mmol/L (3.5-5.1)
[2018-06-18] MEDS: LISINOPRIL 40 MG TAB PO SCH (08:47)
[2018-06-18] MEDS: ENOXAPARIN INJ 30 MG/0.3 ML SYR SQ SCH (08:47)
[2018-06-18] MEDS: CIPROFLOXACIN 500 MG TAB PO SCH (08:47)
[2018-06-18] MEDS: hydroCHLOROthiazide 25 MG TAB PO SCH (08:47)
[2018-06-18] MEDS ORDERED: POTASSIUM CHLORIDE 20 MEQ TABCR PO SCH (09:15)
--- NOTE | 2018-06-18 12:20 | Urology Progress Note ---
Date of Service No acute events Urine cx showed likely contamination Voiding w/o difficulty No fecaluria Min dysuria June 18, 2018 Assessment & Plan (1) Dysuria: Stable from point of view Can f/u as outpt for cysto (2) Diverticulitis: Management per hosptialists or general surgery. Subjective Gastrointestinal: as per Subjective / HPI and + abdominal pain Genitourinary (Female): + as per Subjective / HPI and + dysuria Physical Exam Vital Signs (Past 24 Hours): Last Vital Signs Temp 37 C 06/18/18 07:26 Pulse 61 06/18/18 07:26 Resp 17 06/18/18 07:26 BP 154/88 H 06/18/18 07:26 Pulse Ox 96 06/18/18 07:26 Constitutional: WD/WN, vitals as above well developed Gastrointestinal (Abdomen): Inspection/Auscultation: abdomen normal to inspection Percussion/Palpation: abdomen soft Genitourinary: normal external appearance; no bladder abnormality, no external lesions and no urethral lesion
--- NOTE | 2018-06-18 16:26 | Discharge Summary ---
Date of Service June 18, 2018 Admission HPI Per Admitting Provider This is a 68-year-old female with past medical history of hypertension and 2 previous episodes of diverticulitis who presents to the emergency room after failure of outpatient therapy for diverticulitis. She states her symptoms began 4 days ago with right lower quadrant pain that traveled to the middle and then to the left side of her abdomen. She states she had 2 days worth of loose stools, then had formed stools the following days. She endorses nausea. She denies vomiting. She endorses decreased appetite. She also endorses dysuria that began yesterday, for which she took 1 dose of Azo. She was seen by her primary care provider during the course of this illness, and was prescribed Cipro. She was told that should she develop fevers or worsening pain to present to the ED. In the ED, she was initially hypertensive then normotensive. Not tachycardic. Oxygenating well on room air, febrile 38 C.Her labs were remarkable for leukocytosis white blood cell count 12,000, mild anemia H&H 11.2/33, electr olytes unremarkable, glucose slightly elevated 132, lactate normal. Liver function normal. Lipase normal. Urinalysis showed dark yellow urine, 2+ ketones, positive nitrites. Abdomen pelvis CT with IV contrast showed acute sigmoid diverticulitis. No free air or abscess. Possible infiltration adjacent to the dome of the bladder, no gas within the bladder, need to exclude possible colovesicular fistula. - PMH 1. reviewed, below PSH 1. reviewed, below. Of note, pt has sugically absent appendix, GB, uterus. Social history: Denies T / E / D . Hospitalist service consulted for further evaluation and management. Principal Diagnosis Diverticulitis Discharge Exam The patient appeared well nourished and normally developed. Vital signs as documented. Head exam is unremarkable. normocephalic, atraumatic Neck is without jugular venous distension, thyromegaly, or lymphademopathy Lungs are clear to auscultation and percussion. Cardiac exam reveals Rhythm is regular. First and second heart sounds normal. Abdominal exam she still has some mild suprapubic and left lower quadrant tenderness with no rebound or guarding bowel sounds are normal in present Extremities are nonedematous and both pedal pulses are present Neurologic exam is A&Ox3, no focal deficits, strength is equal bilateral Psychologically seems neither anxious or depressed Skin is warm Dry without bruises or lesions Discharge Data Allergies Allergy/AdvReac Type Severity Reaction Status Date / Time amoxicillin Allergy Intermediate Swelling Unverified 06/15/18 19:46 of Lip/Tongue/Throat clavulanic acid Allergy Intermediate Swelling Unverified 06/15/18 19:46 of Lip/Tongue/Throat Consultations 06/15/18 23:12 ED Decision to Admit Stat 06/16/18 09:35 Consult Urology Routine Ordered Studies 06/15/18 19:24 CT abd pelvis IV con only Stat Hospital Course (1) Diverticulitis: 68F here with diverticulitis, who failed outpatient treatment -Diverticulitis with possible colovesicular fistula on CT -- bladder neg for free air urinalysis unremarkable for significant changes cultures are negative the time of discharge Abdomen remains mildly tender in the suprapubic area. I instructed the patient to report urology if she has any air when she urinates and to report to the ER if fever recurs. The patient has Cipro and Flagyl at home which she will continue however I did recommend that she discuss a repeat CT scan with her primary care provider to determine if there is any residual pericolonic fluid collections or persistent irritation to the dome of the bladder Will complete a 14-day course of Cipro Flagyl (2) Hypertension: Continue home HCTZ 25mg daily, lisinopril 40mg daily. (3) Dysuria: Urine cultures are negative at time of discharge she was seen by urology will follow up with urology Total Time Total Time Spent Total Time Spent (In Minutes): greater than 30 minutes were required to prepare discharge Discharge Plan Discharge Items Patient Disposition: Home - Self-Care Reason For Visit: DIVERTICULITIS Discharge Diagnosis: diverticulitis Discharge Goals: Decrease discomfort Activity: Resume your previous activity Non-emergency contact: Primary Care Provider Call non-emergency contact if: you have any medication questions Follow-up/Referrals: Griselda Trent CRNP [Primary Care Provider] - Piero Griffin II, DO [Physician] - Diet: Regular Addtl Provider Instructions: please follow up with PCP for discussion of repeat CT scan to evaluate possible connection from bowel to bladder if fever re occures on antibiotic return to ER if you urinate air please call urology Prescriptions: New metronidazole 500 mg Tablet 500 mg PO Q8 Qty: 36 RF: 0 ciprofloxacin HCl 500 mg Tablet 500 mg PO Q12 Qty: 24 RF: 0 Continued lisinopril 40 mg tablet 40 mg PO DAILY RF: 0 hydrochlorothiazide 25 mg tablet 25 mg PO QAM RF: 0 Stand-Alone Forms: [facility]/Other Patient Handouts: DVT Prevent Discharge Orders: Discharge Order (Routine); Ordered 06/18/18 Ordered By: Rafael Garcia Admission Data Admit Date/Time: 06/15/18 23:28 Attending Provider: Rafael Garcia Admit Provider: Suzy Moreau Primary Care Provider: Griselda Trent Other Providers: Luis Singh ; Rafael Duarte Service: Medical Other Interventions: Discharge Summary Assessment (RN) Last Done: 06/18/18 13:19 DC Date/Time DO NOT enter until pt leaves facility: 06/18/18 13:44
== END 2018-06-18 13:44 | disposition home or self-care (01) | DRG 392 ==
LOC: ED 17:10 → 4W 23:28 → SUATTDRO 23:28 → 4W 23:52